=== PATIENT | female | born 1945 | race Caucasian/White ===

== ENCOUNTER 2022-09-28 10:13 | Emergency (ER) | payer OTHER, SELFPAY ==
--- NOTE | ~2022-09-28 | XR_ITS ---
XR chest 2V 09/28/2022 11:14 Indication: Covid positive. Cough. Procedure: 2 view chest Comparison: No prior studies for comparison. Findings: Heart size normal. No focal air space disease, pulmonary edema, pleural effusion or suspect ed pneumothorax. There is scoliosis. No acute osseous abnormality. Impression: 1: No acute cardiopulmonary disease. Reviewed, dictated and finalized at location B. Impression: 1: No acute cardiopulmonary disease.
[2022-09-28 10:37] VITALS: BP 110/58; PULSE 87; RESP 14; TEMP 37.5; O2SAT 100
--- NOTE | 2022-09-28 11:10 | ED.URI ---
HPI - URI/Sore Throat General Chief Complaint: Upper Respiratory Infection Stated Complaint: cough, bodyaches Time Seen by Provider: 09/28/22 10:55 Source: patient and RN notes reviewed Mode of arrival: ambulatory Limitations: no limitations History of Present Illness HPI Narrative: Patient presents today with a 2 day history of cough, body aches, headache, and left mid back pain. Denies shortness of breath. Patient has been using DayQuil without relief. History of COPD, but does not currently smoke. Patient was recently visiting the hospital as her was brought home yesterday on hospice. Related Data Home Medications Medication Instructions Recorded Confirmed alendronate 70 mg tablet mg PO 09/28/22 celecoxib 400 mg capsule mg 09/28/22 cyclobenzaprine 10 mg tablet mg 09/28/22 gabapentin 100 mg capsule mg 09/28/22 levothyroxine 50 mcg tablet mcg 09/28/22 omeprazole 40 mg capsule,delayed mg 09/28/22 release pimecrolimus 1 % topical cream applic topical 09/28/22 simvastatin 40 mg tablet mg 09/28/22 tolterodine 4 mg capsule,extended mg PO 09/28/22 release 24 hr Allergies Allergy/AdvReac Type Severity Reaction Status Date / Time No Known Allergies Allergy Verified 09/28/22 10:16 Review of Systems Review of Systems: CONSTITUTIONAL: Denies fever, chills, or sweats.+ body aches EYES: Denies visual changes, redness, or discharge. ENT: Denies rhinorrhea, congestion, sore throat, or otalgia. CARDIOVASCULAR: Denies chest pain, palpitations, or edema. RESPIRATORY: Denies dyspnea.+ cough GASTROINTESTINAL: Denies abdominal pain, nausea, vomiting, or diarrhea. GENITOURINARY: Denies dysuria or hematuria. SKIN: Denies rash, itching, or wounds. MUSCULOSKELETAL: Denies joint pain, or myalgia.+ back pain NEUROLOGIC: Denies numbness, tingling, or weakness.+ headache PSYCH: Denies depression or anxiety. [facility] Past Medical History Medical History (Updated 09/28/22 @ 11:41 by Stephanie Barker, [employer]ACHINE [employer], ) COPD (chronic obstructive pulmonary disease) Comments At time of signature, I have reviewed and agree with nursing past medical, surgical, social and family history unless otherwise noted. Please see nursing chart for further information. There is no relevant family history pertinent to the presenting complaint Exam Narrative: GENERAL: Well-appearing, well-nourished, and in no acute distress. HEAD: Normocephalic, atraumatic. EYES: EOMI. No redness or drainage. Conjunctivae normal. ENT: Mucous membranes pink and moist. Nares clear. No rhinorrhea. TMs normal bilaterally. Throat normal. Uvula midline. NECK: Normal AROM. Supple. No lymphadenopathy. CHEST: No respiratory distress. Diminished breath sounds in the left lower lobe, otherwise clear. HEART: Regular rate and rhythm. No murmur appreciated. Normal peripheral pulses. EXTREMITIES: Normal range of motion. No edema. SKIN: Warm, dry, no rash. Capillary refill normal. Normal skin turgor. NEURO: No focal deficits. Alert and oriented x3. Gait steady. PSYCH: Normal affect. No signs of depression or anxiety. Course Course Level of Care: Express Care Visit Vital Signs Vital signs: Vital Signs Temperature 99.5 F 09/28/22 10:37 Pulse Rate 87 09/28/22 10:37 Respiratory Rate 14 09/28/22 10:37 Blood Pressure 110/58 L 09/28/22 10:37 Pulse Oximetry 100 09/28/22 10:37 Oxygen Delivery Room Air 09/28/22 10:37 Temperature 99.5 F 09/28/22 10:37 Pulse Rate 87 09/28/22 10:37 Respiratory Rate 14 09/28/22 10:37 Blood Pressure 110/58 L 09/28/22 10:37 Pulse Oximetry 100 09/28/22 10:37 Oxygen Delivery Room Air 09/28/22 10:37 Reviewed MDM - URI/Sore Throat MDM Narrative Medical decision making narrative: COVID-19 positive. X-ray performed to rule out pneumonia. Chest x-ray is negative for anything acute. Will prescribe prescription for Paxlovid. Patient needs to stop her simvastatin and tolte
== END 2022-09-28 11:42 | disposition home or self-care (01) ==
PROVIDERS: Emergency Provider Nurse Practitioner; PCP Family Medicine
DX: U07.1 COVID-19 (principal); J44.9 Chronic obstructive pulmonary disease, unspecified
CPT/HCPCS: 71046; 87426; 99203; C9803; G0463